=== PATIENT | male | born 2000 | race Asian ===

== ENCOUNTER 2022-03-25 14:02 | Outpatient (CLI) | payer MEDICAID, SELFPAY ==
[2022-03-25 18:06] LABS: SARS PCR* Negative SARS-CoV-2 (Negative)
== END 2022-03-25 14:03 | disposition home or self-care (01) ==
LOC: LONREF 14:02
PROVIDERS: PCP Family Medicine; Visit Provider Family Medicine
DX: Z20.822 Contact with and (suspected) exposure to COVID-19 (principal); R50.9 Fever, unspecified
CPT/HCPCS: 87635

== ENCOUNTER 2024-12-31 16:08 | Emergency (ER) | payer SELFPAY ==
--- OUTSIDE RECORDS SUMMARY | 2024-12-31 16:11 | XMS_ITS | Clinical Summary ---
Author Organization [facility] Brittney but[facility] Address [address] [place] [address] Phone Care Team Providers Care Railroad Commissioner Name Role Phone Unavailable Primary Care Provider Unavailabl e Allergies No known active allergies Medications Acetaminophen-Ca ffeine (Excedrin Tension Headache) 500-65 MG tablet Take 1 tablet by mouth every 6 (six) hours if needed Active cyclobenzaprine (FLEXERIL) 10 MG tablet Take 10 mg by mouth 3 (three) times a day if needed for muscle spasms Active ibuprofen (ADVIL) 200 MG tablet Take 200 mg by mouth every 4 (four) hours if needed for mild pain Active pseudoephedrine (SUDAFED) 120 MG 12 hr tablet Take 120 mg by mouth every 12 (twelve) hours Active Active Problems Problem Noted Date Diagnosed Date Pituitary cyst 03/23/2020 Social History Tobacco Use Types Packs/Day Years Used Date Smoking Tobacco: Never Assessed Sex and Gender Information Value Date Recorded Sex Assigned at Not on file Legal Sex Male 1:49 PM MDT Gender Identity Not on file Sexual Orientation Not on file Plan of Treatment Health Maintenance Due Date Last Done Comments Influenza Vaccine (#1) 2025 Insurance PM INTERFACED INSURANCE
--- OUTSIDE RECORDS SUMMARY | 2024-12-31 16:11 | XMS_ITS | Encounter Summary ---
Author Organization [facility] Address [address] [place] [address] Care Team Providers Care Forest Pathologist Name Role Phone Janny Tavarez MD Primary Care Provider Unav ailable Janny Tavarez MD Unavailable Unavailabl e Silvia Bae NP Unavailable [phone] Encounter Details Date Type Department Care Team (Late st Contact Info) Description 03/25/2020 [facility] Medical Advice [address] [place] [id number] Janny Tavarez MD INACTIVE IN [place] SINCE 05/21/2021 Social History Tobacco Use Types Packs/Day Years Used Date Smoking Tobacco: Never Smokeless Tobacco: Never Alcohol Use Standard Drinks/Week Comments Never 0 (1 standard drink = 0.6 oz pur e alcohol) Humiliation, Afraid, Rape, and Kick questionnair e Answer Date Recorded Within the last year, have y ou been afraid of your partner or ex-partner? No 07/26/2019 Within the last year, have y ou been humiliated or emotionally abused in other ways by your partner or ex-partner? No Within the last year, have y ou been kicked, hit, slapped, or otherwise physically hurt by your partner or ex-partner? No 07/26/2019 Within the last year, have y ou been raped or forced to have any kind of sexual activity by your partner or ex-partner? No 07/26/2019 Social Connection and Isolation Panel [NHANES] A nswer Date Recorded Frequency of Communication with Friends and Fami ly Patient declined 07/26/2019 Frequency of Social Gatherings with Friends and Family Patient declined 07/26/2019 Attends Church Services Patient declined 10/2019 Active Member of Clubs or Organizations Patient declined 07/26/2019 Attends Club or Organization Meetings Patient de loaned 07/26/2019 Marital Status Never 07/26/2019 AUDIT-C Answer Date Recorded Q1: How often do you have a drink containing alc ohol? Never 07/26/2019 Average Number of Drinks Not on file 020 Frequency of Binge Drinking Not on file 10/2019 Overall Financial Resource Strain (CARDIA) Answe r Date Recorded How hard is it for you to pa y for the very basics like food, housing, medical care, and heating? Not very hard 07/26/2019 [facility] of Occupat ional Health - Occupational Stress Questionnaire Answer Date Recorded Feeling of Stress To some extent 07/26/2019 Exercise Vital Sign Answer Date Recorde d Days of Exercise per Week 5 days 2019 Minutes of Exercise per Session 60 min 07/26/2019 Hunger Vital Sign Answer Date Recorded Within the past 12 months, y ou worried that your food would run out before you got the money to buy more. Never true 07/26/19 20 Within the past 12 months, t he food you bought just didn't last and you didn't have money to get more. Never true 07/26/2019 PRAPARE - Transportation Answer Date Re corded In the past 12 months, has l ack of transportation kept you from medical appointments or from getting medications? No 10/2019 In the past 12 months, has l ack of transportation kept you from meetings, work, or from getting things needed for daily living? No 07/26/2019 Sex and Gender Information Value Date Recorded Sex Assigned at Male 04/02/2020 8:57 AM OPHTHALMIC ASSISTANT Legal Sex Male 4:25 AM OPHTHALMIC ASSISTANT Gender Identity Male 04/02/2020 8:57 AM OPHTHALMIC ASSISTANT Sexual Orientation Not on file COVID-19 Exposure Response Date Recorded In the last month, have you been in contact with someone who was confirmed or suspected to have Coronavirus / COVID-19? No / Unsure 03/27/2020 7:47 AM OPHTHALMIC ASSISTANT documented as of this encounter Plan of Treatment Not on file documented as of this encounter Visit Diagnoses Not on filedocumented in this encounter Additional Health Concerns Infection Onset Date Last Indicated Resolved Time Rule Out COVID-19 03/30/2020 03/30/2020 03/31/2020 12:33 PM OPHTHALMIC ASSISTANT documented as of this encounter Care Teams Forest Pathologist Relationship Specialty Start Date End Date Janny Tavarez MD PCP - General Internal Medicine 03/22/20 08/04/23 Janny Tavarez MD INACTIVE IN [place] SINCE 05/21/2021 Assigned PCP 02/27/20 11/26/21 Silvia Bae NP [address] [facility] [place] [address] Assigned PCP 07/16/22 03/17/23 documented as of this encounter
--- OUTSIDE RECORDS SUMMARY | 2024-12-31 16:11 | XMS_ITS | Clinical Summary ---
Author Organization [facility] Address [address] [place] [address] Care Team Providers Care Area Plant Manager Name Role Phone Unavailable Primary Care Provider Unavailabl e Allergies No known active allergies Medications cyclobenzaprine (FLEXERIL) 10 MG tabletIndicatio ns:Acute bilateral low back pain without sciatica,Myalgi a Take 1 tablet (10 mg) by mouth nightly as needed for muscle spasms 10 tablet 0 Active Additional Information Patient not taking.Reported on 03/18/2020 cetirizine (ZYRTEC) 10 MG tablet Take 10 mg by mouth daily Active ibuprofen (ADVIL/MOTRIN) 200 MG capsule Take 200 mg by mouth every 4 hours as needed for fever Active Acetaminophen-C affeine (EXCEDRIN TENSION HEADACHE PO) Take by mouth every 6 hours Active Pseudoephedrine HCl (SUDAFED 12 HOUR PO) Take by mouth 2 times daily Active Active Problems Problem Noted Date Diagnosed Date Pituitary cyst 03/23/2020 Resolved Problems Problem Noted Date Diagnosed Date Resolved Date Acute bilateral low back cristel n without sciatica 03/27/2020 07/02/2020 Social History Tobacco Use Types Packs/Day Years [...] Friends and Family Patient declined 07/26/2019 Attends Taoist Services Patient declined 10/2019 Active Member of Clubs or Organizations Patient declined 07/26/2019 Attends Club or Organization Meetings Patient de clined 07/26/2019 Marital Status Never 07/26/2019 AUDIT-C Answer [...] care, and heating? Not very hard 07/26/2019 [facility] of Occupat ional Health - Occupational Stress [...] things needed for daily living? No 07/26/2019 Adolescent Education Answer Date Record ed Getting School Help Needed Not on file 10/17 /2023 Sex and Gender Information Value Date Recorded Sex Assigned at Male 04/02/2020 8:57 AM ETCHER AIRCRAFT Legal Sex Male 4:25 AM ETCHER AIRCRAFT Gender Identity Male 04/02/2020 8:57 AM ETCHER AIRCRAFT Sexual Orientation Not on file Last Filed Vital Signs Vital Sign Reading Time Taken Comments Blood Pressure 114/62 03/18/2020 2:20 PM CDT Pulse 109 03/18/2020 2:20 PM CDT Temperature 36.8 C (98.2 F) 03/18/2020 2:20 PM CDT Respiratory Rate 18 03/18/2020 2:20 PM CDT Oxygen Saturation 98% 03/18/2020 2:20 PM CDT Inhaled Oxygen Concentration - - Weight 71.2 kg (157 lb) 03/18/2020 2:20 PM CDT Height 172.7 cm (5' 8) 03/18/2020 2:20 PM CDT Body Mass Index 23.87 03/18/2020 2:20 PM CDT Plan of Treatment Not on file
--- OUTSIDE RECORDS SUMMARY | 2024-12-31 16:11 | XMS_ITS | Clinical Summary ---
Author Organization [email or web address] Address [address] [place] [address] Care Team Providers Care Filter Tender Jelly Name Role Phone Clinic, No Pcp Or Primary Care Provider Unavaila ble Allergies No known active allergies Medications durable medical equipment (DME)Indication s:Moderate left ankle sprain, initial encounter Nguyen Ankle Brace Pro, Medium DJO [id number] Length of Use: 99 months 1 Each 11/06/2017 Active Social History Tobacco Use Types Packs/Day Years Used Date Smoking Tobacco: Never Smokeless Tobacco: Never Alcohol Use Standard Drinks/Week Comments No 0 (1 standard drink = 0.6 oz pur e alcohol) Sex and Gender Information Value Date Recorded Sex Assigned at Not on file Legal Sex Male 5:52 AM PROGRAM INSTRUCTOR Gender Identity Not on file Sexual Orientation Not on file Obstetrics History Last Filed Vital Signs Vital Sign Reading Time Taken Comments Blood Pressure 102/66 02/17/2020 11:51 AM CDT Pulse 73 02/17/2020 11:51 AM CDT Temperature 36.9 C (98.4 F) 02/17/2020 11:51 AM CDT Respiratory Rate 16 02/17/2020 11:51 AM CDT Oxygen Saturation 97% 02/17/2020 11:51 AM CDT Inhaled Oxygen Concentration - - Weight 72.6 kg (160 lb) 02/17/2020 11:51 AM CDT Height 177.8 cm (5' 10) 02/17/2020 11:51 AM CDT Body Mass Index 22.96 02/17/2020 11:51 AM CDT Plan of Treatment Health Maintenance Due Date Last Done Comments Tetanus booster 2012 Depression screening for age 12+ 2013 HIV for age 15-65 2016 HPV series for age 9-26 (1 - Male 3-dose series) 2016 BMI (ht and wt on same day) for age 18+ 2019 Hepatitis C screening for ag e 18-79 2019 Hepatitis B series for 19+ ( 1 of 3 - 19+ 3-dose series) 2020 COVID-19 vaccine series (1 - 2023-25 season) 2024 Influenza Vaccine (#1) 2025 Pneumococcal series for age 6-49 Aged Out No longer eligible based on patient's age to complete this topic Insurance [facility] Care Teams Filter Tender Jelly Relationship Specialty Start Date End Date Clinic, No Pcp Or . PCP - General 02/17/20
--- OUTSIDE RECORDS SUMMARY | 2024-12-31 16:11 | XMS_ITS | Encounter Summary ---
Author Organization [facility] Address [address] [place] [address] Care Team Providers Care Umbrella Repairer Name Role Phone Janny Tavarez MD Primary Care Provider Unav ailable Janny Tavarez MD Unavailable Unavailabl e Silvia Bae NP Unavailable [phone] Encounter Details Date Type Department Care Team (Late st Contact Info) Description 03/23/2020 My[facility] Medical Advice [address] [place] [id number] Janny Tavarez MD INACTIVE IN [place] SINCE 05/21/2021 Social History Tobacco Use Types [...] Friends and Family Patient declined 07/26/2019 Attends Voodoo Services Patient declined 10/2019 Active Member of [...] care, and heating? Not very hard 07/26/2019 [facility] of Occupat ional Health - Occupational Stress [...] Sex Assigned at Male 04/02/2020 8:57 AM SEBD TEACHER Legal Sex Male 4:25 AM SEBD TEACHER Gender Identity Male 04/02/2020 8:57 AM SEBD TEACHER Sexual Orientation Not on file COVID-19 Exposure Response Date Recorded In the last month, have you been in contact with someone who was confirmed or suspected to have Coronavirus / COVID-19? No / Unsure 03/26/2020 9:27 AM SEBD TEACHER documented as of this encounter Plan of Treatment Not on file documented as of this encounter Visit Diagnoses Not on filedocumented in this encounter Additional Health Concerns Infection Onset Date Last Indicated Resolved Time Rule Out COVID-19 03/30/2020 03/30/2020 03/31/2020 12:33 PM SEBD TEACHER documented as of this encounter Care Teams Umbrella Repairer Relationship Specialty Start Date End Date Janny Tavarez MD PCP - General Internal Medicine 03/22/20 08/04/23 Janny Tavarez MD INACTIVE IN [place] SINCE 05/21/2021 Assigned PCP 02/27/20 11/26/21 Silvia Bae NP [address] [facility] [place] [address] Assigned PCP 07/16/22 03/17/23 documented as of this encounter
--- OUTSIDE RECORDS SUMMARY | 2024-12-31 16:11 | XMS_ITS | Patient Health Record ---
Author Organization [facility] Address [facility] [address] Care Team Providers Care Tool Storage Attendant Name Role Phone SETH CARDOSO Unavailable [phone] Pedro CARPENTER, Юлия Unavailable [phone] Reason For Referral No Information Plan Of Treatment No Information Insurance Providers Payer Name Payer Address Payer Phone Subscriber Number Group Number Insured Name Patient Relationship to Insured Coverage Start Date Coverage End Date [address] [address] [place] [address] [id number] Chadd Meade Child - Insured has Financial Responsibility 0
--- OUTSIDE RECORDS SUMMARY | 2024-12-31 16:11 | XMS_ITS | Encounter Summary ---
Author Organization [facility] Address [address] [place] [address] Care Team Providers Care Network Operations Center Technician Name Role Phone Cheryl Omalley MD Primary Care Provider Janny Tavarez MD Primary Care Provider Unav ailable Janny Tavarez MD Unavailable Unavailabl e Silvia Bae NP Unavailable [phone] Encounter Details Date Type Department Care Team (Late st Contact Info) Description 03/20/2020 MyC Medical Advice [address] [place] [address] Janny Tavarez MD INACTIVE IN [place] SINCE 05/21/2021 Social History Tobacco Use Types [...] Friends and Family Patient declined 07/26/2019 Attends Tenriism Services Patient declined 10/2019 Active Member of [...] care, and heating? Not very hard 07/26/2019 [facility] of Occupat ional Health - Occupational Stress [...] Sex Assigned at Male 04/02/2020 8:57 AM PSYCHIATRIC CLINICAL NURSE SPECIALIST Legal Sex Male 4:25 AM PSYCHIATRIC CLINICAL NURSE SPECIALIST Gender Identity Male 04/02/2020 8:57 AM PSYCHIATRIC CLINICAL NURSE SPECIALIST Sexual Orientation Not on file COVID-19 Exposure Response Date Recorded In the last month, have you been in contact with someone who was confirmed or suspected to have Coronavirus / COVID-19? No / Unsure 03/22/2020 6:54 AM PSYCHIATRIC CLINICAL NURSE SPECIALIST documented as of this encounter Plan of Treatment Not on file documented as of this encounter Visit Diagnoses Not on filedocumented in this encounter Additional Health Concerns Infection Onset Date Last Indicated Resolved Time Rule Out COVID-19 03/30/2020 03/30/2020 03/31/2020 12:33 PM PSYCHIATRIC CLINICAL NURSE SPECIALIST documented as of this encounter Care Teams Network Operations Center Technician Relationship Specialty Start Date End Date Cheryl Omalley MD [facility] [address] [facility] [address] [place] [address] PCP - General Pediatrics 02/24/20 03/21/20 Janny Tavarez MD [facility] [address] [facility] [address] [place] [address] PCP - General Internal Medicine 03/22/20 08/04/23 Janny Tavarez MD INACTIVE IN [place] SINCE 05/21/2021 Assigned PCP 02/27/20 11/26/21 Silvia Bae NP [address] [facility] [place] [address] Assigned PCP 07/16/22 03/17/23 documented as of this encounter
[2024-12-31 16:18] VITALS: BP 123/73; PULSE 64; RESP 18; TEMP 37.4; O2SAT 98; BMI 23.6
--- NOTE | 2024-12-31 16:21 | CRLHL7_ITS ---
For Patients: As a result of the Cures Act, medical imaging exams and procedure reports are released immediately into your electronic medical record. You may view this report before your referring provider. If you have questions, please contact your health care provider. Indication: HEAVY OBJECT ONTO FOOT Technique: Three views of the right 5th toe Comparison: None Findings/Impression: Synostosis of the middle and distal phalanx of the right 5th toe with transverse, nondisplaced fracture of the fused mid-distal phalanx. Mild soft tissue swelling of the 5th toe. Dictated by Sim Andrade MD @ 12/31/2024 5:06:38 PM (Electronically Signed)
--- NOTE | 2024-12-31 17:13 | ED_ITS ---
HPI - General Adult General Date Seen: 12/31/24 Chief complaint: Extremity Pain/Injury, Lower Stated complaint: right pinky toe broken Time Seen by Provider: 12/31/24 17:12 History of Present Illness HPI narrative: Very pleasant 24-year-old male presenting to the ER today with pain, bruising, and swelling involving his right 5th toe. He was at work today when he injured his toe. At around 10:30 a.m. this morning he was trying to his. A stack of pallets (weighing approximately 300 lb) from tipping over. The stack tipped over and then it landed directly on his 5th toe. He noticed pain but was able to finish his shift at work. He has taken ibuprofen for pain and although he still uncomfortable pain is now tolerable. Throughout the day he has noted evolving bruising and swelling. He has been icing his foot. After work it became more bruised and swollen so he decided to come in and get checked. No other injury from the incident. Related Data Home Medications ?Medication ?Instructions ?Recorded ?Confirmed No Known Home Medications 12/23/2109/10 Allergies Allergy/AdvReac Type Severity Reaction Status Date / Time No Known Drug Allergies Allergy Verified 12/31/24 16:18 PFSH PFS Family History Other Adopted person Social History Smoking Status: Never smoker How often do you have a drink containing alcohol: never AUDIT-C Alcohol total score: 0 Non-prescribed substance use: denies use Exam Narrative: Exam Narrative: Constitutional: Appears well-developed and well-nourished. Active. Non-toxic appearing. Polite. HENT: Head: Atraumatic. No signs of injury. Nose: No nasal discharge. Mouth/Throat: Mucous membranes are moist. No trismus. Eyes: Conjunctivae normal and EOM are normal. Pupils are equal, round, and reactive to light. Right eye exhibits no discharge. Left eye exhibits no discharge. No icterus. Neck: Normal range of motion. Neck supple. No adenopathy. No stridor. Cardiovascular: Normal rate and regular rhythm.. Normal DP and PT pulses Brisk capillary refill Pulmonary/Chest: Effort normal. No stridor. No respiratory distress. Musculoskeletal: Normal except for right foot 5th toe-normal range of motion. No edema. No tenderness. No deformity. Right foot: There is ecchymosis and swelling of the right 5th toe. No angulation. No rotational deformity. He does have intact distal sensory function to light touch. He is not able to wiggle the toe due to pain. No tenderness over the 5th metatarsal, midfoot, hindfoot. 4th-1st toes are nontender Neurological: Alert. Normal strength. No cranial nerve deficit or sensory deficit. Coordination normal. GCS eye subscore is 4. GCS verbal subscore is 5. GCS motor subscore is 6. Intact distal sensory function. Skin: Skin is warm. No rash noted. Const: Vital Signs, click to edit/add: Vital Signs - 24 hr 12/31/24 16:18 Temperature 99.3 F Pulse Rate [Pulse Oximeter] 64 Respiratory Rate 18 Blood Pressure [Ri ght Upper Arm] 123/73 Pulse Oximetry 98 Oxygen Delivery Me thod Room Air Course Vital Signs Vital signs: Initial Vital Signs Temperature 99.3 F 12/31/24 16:18 Temperature Source Temporal Artery Scan 12/31/24 16:18 Pulse Rate 64 12/31/24 16:18 Respiratory Rate 18 12/31/24 16:18 Blood Pressure 123/73 12/31/24 16:18 Blood Pressure Mean 89 12/31/24 16:18 Pulse Oximetry 98 12/31/24 16:18 Oxygen Delivery Method Room Air 12/31/24 16:18 Vital Signs Temperature 99.3 F 12/31/24 16:18 Pulse Rate 64 12/31/24 16:18 Respiratory Rate 18 12/31/24 16:18 Blood Pressure 123/73 12/31/24 16:18 Pulse Oximetry 98 12/31/24 16:18 Oxygen Delivery Method Room Air 12/31/24 16:18 Temperature 99.3 F 12/31/24 16:18 Pulse Rate 64 12/31/24 16:18 Respiratory Rate 18 12/31/24 16:18 Blood Pressure 123/73 12/31/24 16:18 Pulse Oximetry 98 12/31/24 16:18 Oxygen Delivery Method Room Air 12/31/24 16:18 Medical Decision Making MDM Narrative Medical decision making narrative: Pleasant 24-year-old gentleman presenting to the ER with swelling and bruising affecting his right 5th toe. He suffered an injury where a stack of pallets fell over and landed on that toe at work this morning. X-rays confirm a nondisplaced, nonangulated transverse fracture through the middle phalanges of that toe. Hopefully this fracture will heal non operatively. Patient is mary taped with gauze to prevent maceration. Placed into an ortho shoe to help immobilize his forefoot. He understands the need to try to keep his foot resting and elevated for the next several days. Provided with a note for work for light duty. He will use Tylenol and ibuprofen if needed. He is instructed to return to the ER or see his doctor immediately if he has any worsening symptoms. Otherwise follow-up with orthopedics if not steadily improving over the next 5-7 days, or if a has any other concerns. He anticipate that it will probably take 4-6 weeks for complete healing. Precautions for return to the ER reviewed. Imaging Data XR Toe: Attestation: I have reviewed the pertinent imaging results. My impression: Transverse fracture through the distal phalanx of the right 5th toe Radiologist's impression: Findings/Impression: Synostosis of the middle and distal phalanx of the right 5th toe with transverse, nondisplaced fracture of the fused mid-distal phalanx. Mild soft tissue swelling of the 5th toe. Discharge Plan Discharge Clinical Impression: Fracture of toe Patient Disposition: Home, Self-Care Condition: Stable Instructions: Toe Fracture (ED) Additional Instructions: As we discussed, your x-ray shows that you have a fracture through the middle phalanx of the 5th toe on your right foot. Fortunately this fracture is not displaced. This fracture should heal as long as we keep it immobilized. Use the mary tape (with gauze padding in between your clothes) for the next couple of weeks. Be sure to change the mary tape every 1-2 days. Use the ortho shoe to help immobilize your toes and prevent your toes from bending when you walk for the next several days. You can go back to regular work when your foot starts to feel better It will probably take 4-6 weeks for this fracture to heal. However your toe should gradually get better over the next several days. If your toe is not dramatically improved within 5-7 days, please see your doctor or recheck with the [facility] Orthopedic Department. To schedule an ER follow-up visit with the orthopedic department call [phone] If your toes gets worse or if you have any other concerns please return to the ER right away. For pain you can use Tylenol 1000 mg every 6 hours as needed or ibuprofen 600 mg every 6 hours as needed. Try to keep her foot elevated at the level of your heart when possible. Use an ice pack for 20 minutes every 3-4 hours to help reduce swelling and pain. Until your toe is healing, Avoid activities that require prolonged standing, or activities that could cause you to re-injury your foot. Prescriptions: No Action No Known Home Medications Follow Up/Referrals: Mirza Tinoco MD [Primary Care Provider, Family Practice] Stand Alone Forms: Work/School Release, [employer] Info Instructions
== END 2024-12-31 17:55 | disposition home or self-care (01) ==
PROVIDERS: Emergency Provider Emergency Medicine; PCP Family Medicine
DX: S92.591A Other fracture of right lesser toe(s), initial encounter for closed fracture (principal); W20.8XXA Other cause of strike by thrown, projected or falling object, initial encounter; Y99.0 Civilian activity done for income or pay
CPT/HCPCS: 73660; 99282; 99283